=== PATIENT | female | born 1970 | race Caucasian/White ===

== ENCOUNTER → 2017-10-19 | Day surgery (SDC) | payer BC ==
[~2017-10-19] MED LIST: Lactated Ringers 1,000 ML IV SCH; Propofol 200 MG/20 ML SDV IV ONE
[2017-10-19 13:58] VITALS: BP 126/63
--- NOTE | 2017-10-19 14:58 | OR ---
DATE OF OPERATION: 10/19/2017 PREOPERATIVE DIAGNOSIS: FAMILY HISTORY OF COLON CANCER. POSTOPERATIVE DIAGNOSIS: FAMILY HISTORY OF COLON CANCER. SURGEON: Reggie Ellis MD PROCEDURE: FULL-LENGTH COLONOSCOPY WITH POLYP REMOVAL X1, BIOPSY X2. ANESTHESIA: SLITTER OPERATOR. COMPLICATIONS: None. SPECIMEN: 1. Hyperplastic polyp, rectosigmoid junction. 2. Rectal biopsy x2. FINDINGS: 1. Full-length colonoscopy. 2. Hyperplastic polyp, rectosigmoid junction. 3. Submucosal lipoma, rectal vault. RECOMMENDATIONS: Follow up colonoscopy every 5 years. INDICATIONS: Mrs. Flores has a family history of colon cancer in her brother who is due for a 5-year follow up scope. DESCRIPTION OF PROCEDURE: The patient is prepped and draped, placed in the left lateral decubitus position. A lubricated Olympus colonoscope was inserted and easily advanced to the cecum. Direct visualization of the ileocecal valve and appendiceal orifice was accomplished. The bowel prep was adequate. Upon withdrawal, cecum, ascending, and transverse colon were completely benign. Throughout most of the left colon, I could find no signs of any polyps, mass, ulceration, bleeding sites, or vascular abnormalities or signs of colitis. The patient did have a small hyperplastic polyp at around 20-25 cm in the rectosigmoid junction. It was removed easily with 2 cold forceps biopsies in its entirety. The rectal vault did have what appears to be a submucosal lipoma. It is from an area of prior excision in the rectum of some lymphoid aggregate tissue. I did do 2 biopsies of it for confirmation and had a classic lipoma tissue underneath the biopsy area. Retroflexion showed no perianal lesions. Air was suctioned, scope removed without complication, patient is stable in recovery room. VONDA/GALO /[id number]
== END ==
LOC: CC.SDS 11:20
PROVIDERS: ATTEND Family Medicine
DX: Z12.11 Encounter for screening for malignant neoplasm of colon (principal); D17.5 Benign lipomatous neoplasm of intra-abdominal organs; K63.5 Polyp of colon; M19.90 Unspecified osteoarthritis, unspecified site; E55.9 Vitamin D deficiency, unspecified; E78.5 Hyperlipidemia, unspecified; M81.8 Other osteoporosis without current pathological fracture; Z88.0 Allergy status to penicillin; Z79.82 Long term (current) use of aspirin; Z79.899 Other long term (current) drug therapy; Z98.890 Other specified postprocedural states; Z90.49 Acquired absence of other specified parts of digestive tract; Z90.710 Acquired absence of both cervix and uterus; Z80.0 Family history of malignant neoplasm of digestive organs
CPT/HCPCS: J2704; J7120

== ENCOUNTER 2025-05-15 10:27 | Day surgery (SDC) | payer OTHER ==
[2025-05-15] MEDS: Lactated Ringers 1,000 ML IV SCH (10:40)
[2025-05-15] MEDS ORDERED: Midazolam 1 MG/ML 2 ML SDV ONE (10:55)
[2025-05-15] MEDS ORDERED: fentaNYL 50 MCG/ML SDV ONE (10:55)
[2025-05-15] MEDS ORDERED: Ketamine 200 MG/20 ML MDV ONE (10:55)
[2025-05-15] MEDS ORDERED: Propofol 200 MG/20 ML SDV ONE (10:55)
[2025-05-15 12:35] VITALS: BP 133/62; PULSE 55
== END 2025-05-15 12:15 | disposition home or self-care (01) ==
LOC: CC.SDS 10:27
PROVIDERS: ATTEND Family Medicine
DX: K62.1 Rectal polyp (principal); D17.5 Benign lipomatous neoplasm of intra-abdominal organs; I10 Essential (primary) hypertension; E78.5 Hyperlipidemia, unspecified; E66.9 Obesity, unspecified; R19.4 Change in bowel habit; Z80.0 Family history of malignant neoplasm of digestive organs; Z88.0 Allergy status to penicillin; Z79.899 Other long term (current) drug therapy; Z91.040 Latex allergy status; Z86.0100 Personal history of colon polyps, unspecified
CPT/HCPCS: 00811; 45380; J2250; J2704; J3010; J3490; J7120